=== PATIENT | female | born 1980 | race Caucasian/White ===

== ENCOUNTER 2021-08-02 13:27 | Emergency (ER) | payer OTHER ==
[~2021-08-02 13:27] MED LIST: EFFEXOR XR150 MG PO; NORCO 5-325 TA1 EACH PO; PERCOCET 5-3251 EACH PO
[2021-08-02 14:13] LABS: BASOPHIL 0.6 % (0-2); HGB 14.1 g/dl (12.5-16.0); LYMPHOCYTE 20.9 % (15-48); MCH 31.5 pg (25.0-31.0); MCHC 33.6 g/dL (32.0-36.0); MCV 93.8 fL (78.0-100.0); MONOCYTE 7.7 % (0-12); NEUTROPHIL 68.4 % (41-80); NRBC 0; PLT 200 K/uL (150-400); RBC 4.48 M/uL (4.20-5.40); RDW 12.8 % (11.5-14.0); WBC 11.2 K/uL (4.0-10.5)
[2021-08-02 14:17] LABS: INR 0.95 (0.9-1.2); PROTHROMBIN TIME 12.1 SECONDS (11.8-13.4); PTT 25.3 SECONDS (24.4-34.7)
[2021-08-02 14:25] LABS: ALBUMIN 3.4 g/dL (3.4-5.0); BILIRUBIN - TOTAL 0.3 mg/dL (0.2-1.0); BUN/CREAT RATIO (CALC) 13.8 RATIO; CREATININE 0.87 mg/dL (0.51-0.95); GLOBULIN (CALCULATION) 3.5 g/dL; POTASSIUM 3.8 mmol/L (3.5-5.1); TOTAL PROTEIN 6.9 g/dL (6.4-8.2)
[2021-08-02 16:25] LABS: BILIRUBIN NEGATIVE (NEGATIVE); BLOOD NEGATIVE Ery/uL (NEGATIVE); CLARITY CLEAR (CLEAR); COLOR YELLOW (YELLOW); GLUCOSE (U) NORMAL (NORMAL); LEUKOCYTES NEGATIVE Leu/uL (NEGATIVE); NITRITE NEGATIVE (NEGATIVE); PROTEIN NEGATIVE (NEGATIVE); UROBILINOGEN 0.2 mg/dL (0.2-1.0)
[2021-08-02] MEDS ORDERED: PRILOSEC20 MG PO (18:40)
[2021-08-02] MEDS ORDERED: NORVASC5 MG PO (18:40)
== END 2021-08-02 18:55 | disposition home or self-care (01) ==
LOC: FER 13:27
PROVIDERS: Internal Medicine; Nurse Practitioner Family
DX: K21.9 Gastro-esophageal reflux disease without esophagitis (principal); I10 Essential (primary) hypertension; R07.89 Other chest pain; R06.02 Shortness of breath; R00.0 Tachycardia, unspecified; Z87.09 Personal history of other diseases of the respiratory system; Z98.51 Tubal ligation status
CPT/HCPCS: 36415; 71045; 80053; 81003; 84484; 85025; 85610; 85730; 93005; J1100; J1885; J2270; J2405

== ENCOUNTER 2022-03-07 14:23 | Emergency (ER) | payer OTHER ==
[~2022-03-07 14:23] MED LIST changes: +NORVASC5 MG PO; +PRILOSEC20 MG PO
[2022-03-07 15:41] LABS: BASOPHIL 0.6 % (0-2); EOSINOPHIL 4.9 % (0-5); HCT 41.6 % (37.0-47.0); LYMPHOCYTE 25.3 % (15-48); MCH 29.4 pg (25.0-31.0); MCHC 33.7 g/dL (32.0-36.0); MCV 87.4 fL (78.0-100.0); MONOCYTE 7.9 % (0-12); MPV 11.6 fL (6.0-9.5); NEUTROPHIL 60.8 % (41-80); NRBC 0; PLT 225 K/uL (150-400); RBC 4.76 M/uL (4.20-5.40); RDW 13.1 % (11.5-14.0); WBC 9.7 K/uL (4.0-10.5)
[2022-03-07 15:57] LABS: INR 0.97 (0.9-1.2); PROTHROMBIN TIME 12.3 SECONDS (11.8-13.4); PTT 28.6 SECONDS (24.4-34.7)
[2022-03-07 17:21] LABS: BILIRUBIN - TOTAL 0.3 mg/dL (0.2-1.0); BUN/CREAT RATIO (CALC) 21.2 RATIO; CREATININE 0.8 mg/dL (0.51-0.95); GLOBULIN (CALCULATION) 3.9 g/dL; POTASSIUM 3.7 mmol/L (3.5-5.1); TOTAL PROTEIN 7.9 g/dL (6.4-8.2)
[2022-03-07] MEDS ORDERED: PROTONIX 40MG T40 MG PO (17:43)
[2022-03-07 18:02] LABS: AMPHETAMINES NEGATIVE (NEGATIVE); BARBITURATES NEGATIVE (NEGATIVE); ECSTASY (MDMA) NEGATIVE (NEGATIVE); MARIJUANA (THC) NEGATIVE (NEGATIVE); METHADONE NEGATIVE (NEGATIVE); OPIATES NEGATIVE (NEGATIVE); OXYCODONE NEGATIVE (NEGATIVE)
== END 2022-03-07 18:40 | disposition home or self-care (01) ==
LOC: FER 14:23
PROVIDERS: Emergency Medicine
DX: R07.89 Other chest pain (principal); I10 Essential (primary) hypertension
CPT/HCPCS: 36415; 71046; 80053; 80305; 82553; 84484; 85025; 85610; 85730; 93005